=== PATIENT | female | born 1990 | race American Indian/Alaskan Native ===

== ENCOUNTER 2022-03-07 23:39 | Emergency (ER) | payer BC, OTHER ==
[2022-03-08] MEDS ORDERED: oxyCODONE 5 MG Tab PO ONE ×2 (00:06→01:56)
[2022-03-08] MEDS ORDERED: Bupivacaine 0.5% 10 ML SDV INJECT STA (00:31)
== END 2022-03-08 02:00 | disposition home or self-care (01) ==
LOC: MW.ED 23:39
DX: S82.851A Displaced trimalleolar fracture of right lower leg, initial encounter for closed fracture (principal); W06.XXXA Fall from bed, initial encounter
CPT/HCPCS: 27818; 73610; 73630; 99283; A9270; J3490